=== PATIENT | male | born 1990 | race Caucasian/White ===

== ENCOUNTER 2016-12-16 01:31 | Emergency (ER) | payer SELFPAY ==
--- NOTE | 2016-12-16 02:56 | ED CLINICAL REPORT ---
Clinical Report - Physicians/Mid Levels [facility] [address] [place] [address] 12/16/2016 1:32 Patient: STONEY STUART Time Seen: 02:18 Dec 16 2016. Arrived- By private vehicle. Historian- patient. CPT: ER phys charges level 3 (#[id number]). HISTORY OF PRESENT ILLNESS Chief Complaint: DENTAL PAIN. MOUTH SORE. This started about 1 months ago; ( Noticed a pimple like lump inside his mouth just between the gumline and cheek, pop it out this morning. No pain or bleeding.). Onset. (1 months ago). and is still present. Pain described as moderate. The patient has had toothache. No swollen jaw or face. Similar symptoms previously: None. Recent medical care: Not recently seen/assessed. REVIEW OF SYSTEMS No fever, cough, difficulty breathing, chest pain or nausea. No diarrhea, abdominal pain, headache, joint pain or skin rash. No enlarged lymph nodes or vomiting. Denies current . All systems otherwise negative, except as recorded above. PAST HISTORY See nurses notes. Problems: no known problems. Additional Surgeries: no known surgeries. Medications: None. Allergies: No Known Drug Allergy. SOCIAL HISTORY Heavy tobacco smoker (cigarette)- less than 1 pack per day. Occasional alcohol use. History of drug use: marijuana. ADDITIONAL NOTES The nursing notes have been reviewed. PHYSICAL EXAM Vital Signs: 12/16/2016 01:42 BP: 144/86. HR: 96. RR: 16. O2 saturation: 97%. Temp: 98.4 F. Pain level now: 0/10. Appearance: Alert. Patient in mild distress. Head: Normal external inspection. Eyes: Pupils equal, round and reactive to light. Conjunctivae and eyelids normal. ENT: Severe, localized dental decay (lower left first molar). Ears normal. Nose normal. Pharynx normal. Lips normal. Gums normal. Uvula midline. Neck: No adenopathy. CVS: Normal heart rate and rhythm. Heart sounds normal. Pulses normal. No cardiac murmur. Respiratory: No respiratory distress. Breath sounds normal. Chest nontender. Abdomen: Soft and nontender. Skin: Normal skin color. No rash. Extremities: Extremities nontender. Neuro: Oriented X 3. No motor deficit. PROGRESS AND PROCEDURES Patient/family counseled. Disposition: Discharged. Condition: stable. CLINICAL IMPRESSION Periapical dental abscess with sinus tract. INSTRUCTIONS Drink plenty of fluids. Warnings: Further evaluation is necessary. GENERAL WARNINGS: Return or contact your physician immediately if your condition worsens or changes unexpectedly, if not improving as expected, or if other problems arise. Prescription Medications: Penicillin V 500mg: take 1 tab orally every 6 hours for 10 days. Dispense forty (40). No refill OTC Medications: Acetaminophen (available over the counter): take according to label instructions. Follow-up: Follow up with a dentist Thursday in two days as scheduled. Understanding of the discharge instructions verbalized by patient and parent. (Electronically signed by Austin Estrada MD 12/28/2016 22:57)
--- NOTE | 2016-12-16 02:56 | ED NURSING NOTES ---
Clinical Report - Nurses [facility] [address] [place] [address] 12/16/2016 1:32 Patient: STONEY STUART TRIAGE Triage time 01:42. Acuity: LEVEL 5. Chief Complaint: MOUTH SORE. --01:47 Troy Aldridge R.N. 01:42 12/16/16. BP: 144/86. HR: 96. RR: 16. O2 saturation: 97%. Temp: 98.4 F. Pain level now: 010. --01:47 Troy Aldridge R.N. Weight: 72.5 kg stated. Height/Length: 74 inches Per Patient. BMI: 20.5. --01:45 Troy Aldridge R.N. Medications None. --01:45 Troy Aldridge R.N. Allergies No Known Drug Allergy. --01:45 Troy Aldridge R.N. History Arrived by private vehicle. Historian: patient. Accompanied by mother. ( Noticed a pimple like lump inside his mouth just between the gumline and cheek, pop it out this morning. No pain or bleeding.). Onset. (1 months ago). 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 PAST MEDICAL HX: Negative. SURGERY HX: No history of previous surgery. SOCIAL HX: Light tobacco smoker (cigarette)- less than 1/2 a pack per day. Occasional alcohol use; consumes beer. History of drug use: marijuana. (today). --01:47 Troy Aldridge R.N. Interventions ID band on patient. To room. --01:47 Troy Aldridge R.N. PHYSICAL ASSESSMENT Ambulatory to room. GENERAL / NEURO / PSYCH: Alert. Oriented X 4. Appears in no acute distress. HEENT: Pharyngeal lesions present (inside the left cheeck). Pharynx within normal limits. Voice within normal limits. Mouth within normal limits upon inspection. No dental injury noted. Mucous membranes are pink. RESPIRATORY: Respirations not labored. CVS: Capillary refill less than 2 seconds. SKIN: Skin is warm and dry. Normal skin turgor. --01:48 Troy Aldridge R.N. NURSING PROGRESS NOTES Head of bed elevated. Call light placed in reach. Side rails up x 1. Bed placed in lowest position. Brakes of bed on. Patient ready for evaluation- ED physician notified. --01:49 Troy Aldridge R.N. DISPOSITION / DISCHARGE Condition at departure: improved. No learning barriers present. Discharge instructions provided and reviewed with the patient and parent. Reviewed medication(s) side effects, precautions, dosing and course information. Prescription(s) given to the patient. Reviewed referral to a dentist. Patient verbalized understanding. Written instructions provided in Belarusian. The patient was discharged home and accompanied by parent. He left the Emergency Department ambulatory and via private vehicle. Parent driving. --03:06 Troy Aldridge R.N. 03:05 12/16/16. BP: 127/78. HR: 89. RR: 16. O2 saturation: 100%. Temp: 98.0 F. Pain level now 08/22. --03:06 Troy Aldridge R.N. Departure time: 03:07. --03:09 Troy Aldridge R.N. Locked/Released at 12/16/2016 3:09 by Troy Aldridge R.N.
--- NOTE | 2016-12-16 02:56 | ED CLINICAL REPORT ---
Clinical Report - Physicians/Mid Levels [facility] [address] [place] [address] 12/16/2016 1:32 Patient: STONEY STUART Time Seen: 02:18 Dec 16 2016. Arrived- By private vehicle. Historian- patient. CPT: ER phys charges level 3 (#127363). HISTORY OF PRESENT ILLNESS Chief Complaint: DENTAL PAIN. MOUTH SORE. This started about 1 months ago; ( Noticed a pimple like lump inside his mouth just between the gumline and cheek, pop it out this morning. No pain or bleeding.). Onset. (1 months ago). and is still present. Pain described as moderate. The patient has had toothache. No swollen jaw or face. Similar symptoms previously: None. Recent medical care: Not recently seen/assessed. REVIEW OF SYSTEMS No fever, cough, difficulty breathing, chest pain or nausea. No diarrhea, abdominal pain, headache, joint pain or skin rash. No enlarged lymph nodes or vomiting. Denies current . All systems otherwise negative, except as recorded above. PAST HISTORY See nurses notes. Problems: no known problems. Additional Surgeries: no known surgeries. Medications: None. Allergies: No Known Drug Allergy. SOCIAL HISTORY Heavy tobacco smoker (cigarette)- less than 1 pack per day. Occasional alcohol use. History of drug use: marijuana. ADDITIONAL NOTES The nursing notes have been reviewed. PHYSICAL EXAM Vital Signs: 12/16/2016 01:42 BP: 144/86. HR: 96. RR: 16. O2 saturation: 97%. Temp: 98.4 F. Pain level now: 0/10. Appearance: Alert. Patient in mild distress. Head: Normal external inspection. Eyes: Pupils equal, round and reactive to light. Conjunctivae and eyelids normal. ENT: Severe, localized dental decay (lower left first molar). Ears normal. Nose normal. Pharynx normal. Lips normal. Gums normal. Uvula midline. Neck: No adenopathy. CVS: Normal heart rate and rhythm. Heart sounds normal. Pulses normal. No cardiac murmur. Respiratory: No respiratory distress. Breath sounds normal. Chest nontender. Abdomen: Soft and nontender. Skin: Normal skin color. No rash. Extremities: Extremities nontender. Neuro: Oriented X 3. No motor deficit. PROGRESS AND PROCEDURES Patient/family counseled. Disposition: Discharged. Condition: stable. CLINICAL IMPRESSION Periapical dental abscess with sinus tract. INSTRUCTIONS Drink plenty of fluids. Warnings: Further evaluation is necessary. GENERAL WARNINGS: Return or contact your physician immediately if your condition worsens or changes unexpectedly, if not improving as expected, or if other problems arise. Prescription Medications: Penicillin V 500mg: take 1 tab orally every 6 hours for 10 days. Dispense forty (40). No refill OTC Medications: Acetaminophen (available over the counter): take according to label instructions. Follow-up: Follow up with a dentist Thursday in two days as scheduled. Understanding of the discharge instructions verbalized by patient and parent. (Electronically signed by Austin Estrada MD 12/28/2016 22:57)
--- NOTE | 2016-12-16 02:56 | ED NURSING NOTES ---
Clinical Report - Nurses [facility] [address] [place] [address] 12/16/2016 1:32 Patient: STONEY STUART TRIAGE Triage time 01:42. Acuity: LEVEL 5. Chief Complaint: MOUTH SORE. --01:47 Troy Aldridge R.N. 01:42 12/16/16. BP: 144/86. HR: 96. RR: 16. O2 saturation: 97%. Temp: 98.4 F. Pain level now: 010. --01:47 Troy Aldridge R.N. Weight: 72.5 kg stated. Height/Length: 74 inches Per Patient. BMI: 20.5. --01:45 Troy Aldridge R.N. Medications None. --01:45 Troy Aldridge R.N. Allergies No Known Drug Allergy. --01:45 Troy Aldridge R.N. History Arrived by private vehicle. Historian: patient. Accompanied by mother. ( Noticed a pimple like lump inside his mouth just between the gumline and cheek, pop it out this morning. No pain or bleeding.). Onset. (1 months ago). 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 PAST MEDICAL HX: Negative. SURGERY HX: No history of previous surgery. SOCIAL HX: Light tobacco smoker (cigarette)- less than 1/2 a pack per day. Occasional alcohol use; consumes beer. History of drug use: marijuana. (today). --01:47 Troy Aldridge R.N. Interventions ID band on patient. To room. --01:47 Troy Aldridge R.N. PHYSICAL ASSESSMENT Ambulatory to room. GENERAL / NEURO / PSYCH: Alert. Oriented X 4. Appears in no acute distress. HEENT: Pharyngeal lesions present (inside the left cheeck). Pharynx within normal limits. Voice within normal limits. Mouth within normal limits upon inspection. No dental injury noted. Mucous membranes are pink. RESPIRATORY: Respirations not labored. CVS: Capillary refill less than 2 seconds. SKIN: Skin is warm and dry. Normal skin turgor. --01:48 Troy Aldridge R.N. NURSING PROGRESS NOTES Head of bed elevated. Call light placed in reach. Side rails up x 1. Bed placed in lowest position. Brakes of bed on. Patient ready for evaluation- ED physician notified. --01:49 Troy Aldridge R.N. DISPOSITION / DISCHARGE Condition at departure: improved. No learning barriers present. Discharge instructions provided and reviewed with the patient and parent. Reviewed medication(s) side effects, precautions, dosing and course information. Prescription(s) given to the patient. Reviewed referral to a dentist. Patient verbalized understanding. Written instructions provided in Ecuadorean. The patient was discharged home and accompanied by parent. He left the Emergency Department ambulatory and via private vehicle. Parent driving. --03:06 Troy Aldridge R.N. 03:05 12/16/16. BP: 127/78. HR: 89. RR: 16. O2 saturation: 100%. Temp: 98.0 F. Pain level now 08/22. --03:06 Troy Aldridge R.N. Departure time: 03:07. --03:09 Troy Aldridge R.N. Locked/Released at 12/16/2016 3:09 by Troy Aldridge R.N.
--- NOTE | 2016-12-28 22:57 | ED MAR SUMMARY ---
..... Medication Administration Record [facility] [address], [place] [id number] Patient: STONEY STUART Visit ID: [id number] 26y, M Weight: 72.5 kg Height/Length: 74 in BMI: 20.5 ALLERGIES: No Known Drug Allergy
--- NOTE | 2016-12-28 22:57 | ED MED RECONCILIATION SUMMARY ---
Patient: STONEY STUART Medication Reconciliation Report [facility] VisitID: [id number] [place] [address] 26y, M Registration Date/Time: 12/16/2016 Weight: 72.5 kg Height/Length: 74 in. BMI: 20.5 ALLERGIES: No Known Drug Allergy The patient's Home Medications are listed below: NONE. The source(s) of the original Home Medication information: Not obtained. The following Medications were given to the patient in the Emergency Department: None. The following Medications were prescribed to the patient: Acetaminophen (available over the counter): take according to label instructions. -- Austin Estrada MD Penicillin V 500mg: take 1 tab orally every 6 hours for 10 days. Dispense forty (40). No refill -- Austin Estrada MD
--- NOTE | 2016-12-28 22:57 | ED MED RECONCILIATION SUMMARY ---
Patient: STONEY STUART Medication Reconciliation Report [facility] VisitID: [id number] [place] [address] 26y, M Registration Date/Time: 12/16/2016 Weight: 72.5 kg Height/Length: 74 in. BMI: 20.5 ALLERGIES: No Known Drug Allergy The patient's Home Medications are listed below: NONE. The source(s) of the original Home Medication information: Not obtained. The following Medications were given to the patient in the Emergency Department: None. The following Medications were prescribed to the patient: Acetaminophen (available over the counter): take according to label instructions. -- Austin Estrada MD Penicillin V 500mg: take 1 tab orally every 6 hours for 10 days. Dispense forty (40). No refill -- Austin Estrada MD
--- NOTE | 2016-12-28 22:57 | ED MAR SUMMARY ---
..... Medication Administration Record [facility] [address], [place] [id number] Patient: STONEY STUART Visit ID: [id number] 26y, M Weight: 72.5 kg Height/Length: 74 in BMI: 20.5 ALLERGIES: No Known Drug Allergy
--- NOTE | 2016-12-28 22:57 | ED DISCHARGE INSTRUCTIONS ---
Patient: STONEY STUART General Instructions [facility] VisitID: [id number] [place] [address] 26y, M Registration Date/Time: 12/16/2016 Periapical dental abscess with sinus tract. INSTRUCTIONS Drink plenty of fluids. Warnings: Further evaluation is necessary. GENERAL WARNINGS: Return or contact your physician immediately if your condition worsens or changes unexpectedly, if not improving as expected, or if other problems arise. Prescription Medications: Penicillin V 500mg: take 1 tab orally every 6 hours for 10 days. Dispense forty (40). No refill OTC Medications: Acetaminophen (available over the counter): take according to label instructions. Follow-up: Follow up with a dentist Thursday in two days as scheduled. Understanding of the discharge instructions verbalized by patient and parent. ADDITIONAL INFORMATION Dental Abscess A dental abscess is an infection of the tooth socket. It often starts with a crack or cavity in the tooth. A pocket of pus forms between the tooth and the bone. The infection causes pain and swelling of the gum, cheek or jaw. The pain is often made worse by drinking hot or cold fluids, or biting on hard foods. Pain may be felt in the facial sinus or in the ear. A severe infection can interfere with swallowing and breathing. In the emergency department or clinic, you will be started on an antibiotic. However, final treatment requires drainage of the pus. This can be done by removing the tooth or performing a root canal. A root canal is done by an oral surgeon and involves drilling an opening in the tooth to drain the pus. After the infection has healed, a crown is placed over the tooth. Home care The following guidelines will help you care for your abscess at home: Avoid hot and cold foods and liquids since your tooth may be sensitive to temperature changes. If your tooth is chipped or cracked, or if there is a large open cavity, applyoil of cloves(available [id number]-[id number] in drug stores) directly to the tooth to reduce pain. Some pharmacies carry an mfut-cvi-gtfssak "toothache kit". This contains oil of cloves and a paste, which can be applied over the exposed tooth to decrease sensitivity. Apply an ice pack (ice cubes in a plastic bag, wrapped in a towel) over the injured area for 20 minutes every 12 hours the first day for pain relief. Continue this 34 times a day until the pain and swelling goes away. You may use acetaminophen or ibuprofen to control pain, unless another medicine was prescribed. If you have chronic liver or kidney disease or ever had a stomach ulcer or GI bleeding, talk with your doctor before using these medicines. An antibiotic will be prescribed. Take it as directed until completed, even if you are feeling better sooner. Follow-up care Follow up as directed with a dentist or oral surgeon. Even though your pain may improve with the treatment given today, only a dentist or oral surgeon can provide full treatment for this problem. When to seek medical care Get prompt medical attention or contact your doctor if any of the following occur: Your face or eyelid becomes swollen or red Pain worsens or spreads to the neck Fever over 100.4F (38.0C) Unusual drowsiness; headache or stiff neck; weakness, or fainting Pus drains from the gum or tooth Difficulty talking, swallowing or breathing Unable to open your mouth wide You have been given the following additional information: Tooth Abscess (Electronically signed by Austin Estrada MD 12/28/2016 22:57)
--- NOTE | 2016-12-28 22:57 | ED DISCHARGE INSTRUCTIONS ---
Patient: STONEY STUART General Instructions [facility] VisitID: [id number] [place] [address] 26y, M Registration Date/Time: 12/16/2016 Periapical dental abscess with sinus tract. INSTRUCTIONS Drink plenty of fluids. Warnings: Further evaluation is necessary. GENERAL WARNINGS: Return or contact your physician immediately if your condition worsens or changes unexpectedly, if not improving as expected, or if other problems arise. Prescription Medications: Penicillin V 500mg: take 1 tab orally every 6 hours for 10 days. Dispense forty (40). No refill OTC Medications: Acetaminophen (available over the counter): take according to label instructions. Follow-up: Follow up with a dentist Thursday in two days as scheduled. Understanding of the discharge instructions verbalized by patient and parent. ADDITIONAL INFORMATION Dental Abscess A dental abscess is an infection of the tooth socket. It often starts with a crack or cavity in the tooth. A pocket of pus forms between the tooth and the bone. The infection causes pain and swelling of the gum, cheek or jaw. The pain is often made worse by drinking hot or cold fluids, or biting on hard foods. Pain may be felt in the facial sinus or in the ear. A severe infection can interfere with swallowing and breathing. In the emergency department or clinic, you will be started on an antibiotic. However, final treatment requires drainage of the pus. This can be done by removing the tooth or performing a root canal. A root canal is done by an oral surgeon and involves drilling an opening in the tooth to drain the pus. After the infection has healed, a crown is placed over the tooth. Home care The following guidelines will help you care for your abscess at home: Avoid hot and cold foods and liquids since your tooth may be sensitive to temperature changes. If your tooth is chipped or cracked, or if there is a large open cavity, applyoil of cloves(available tbpi-jjh-cwaswqq in drug stores) directly to the tooth to reduce pain. Some pharmacies carry an zbdt-btr-ckthyas "toothache kit". This contains oil of cloves and a paste, which can be applied over the exposed tooth to decrease sensitivity. Apply an ice pack (ice cubes in a plastic bag, wrapped in a towel) over the injured area for 20 minutes every 12 hours the first day for pain relief. Continue this 34 times a day until the pain and swelling goes away. You may use acetaminophen or ibuprofen to control pain, unless another medicine was prescribed. If you have chronic liver or kidney disease or ever had a stomach ulcer or GI bleeding, talk with your doctor before using these medicines. An antibiotic will be prescribed. Take it as directed until completed, even if you are feeling better sooner. Follow-up care Follow up as directed with a dentist or oral surgeon. Even though your pain may improve with the treatment given today, only a dentist or oral surgeon can provide full treatment for this problem. When to seek medical care Get prompt medical attention or contact your doctor if any of the following occur: Your face or eyelid becomes swollen or red Pain worsens or spreads to the neck Fever over 100.4F (38.0C) Unusual drowsiness; headache or stiff neck; weakness, or fainting Pus drains from the gum or tooth Difficulty talking, swallowing or breathing Unable to open your mouth wide You have been given the following additional information: Tooth Abscess (Electronically signed by Austin Estrada MD 12/28/2016 22:57)
== END 2016-12-16 03:08 | disposition home or self-care (01) ==
LOC: ED SRH 01:31
DX: K04.6 Periapical abscess with sinus (principal); Z72.0 Tobacco use